=== PATIENT | male | born 1995 | race Caucasian/White ===

== ENCOUNTER 2017-07-12 07:11 | Emergency (ER) | payer OTHER ==
[~2017-07-12] VITALS: Ht 180.3 cm; Wt 100.7 kg
[2017-07-12 07:15] VITALS: Ht 180.3 cm; Wt 100.7 kg
--- NOTE | 2017-07-12 07:36 | EMERGENCY ROOM VISIT NOTE ---
History Report prepared by Kevin: Vianney Michel Under the Supervision of: Dr. Rodrigo Kamara M.D. First contact with patient: 07:21 Chief Complaint: NOSE BLEED (MINOR) Stated Complaint: NUMEROUS NOSE BLEEDS History of Present Illness The patient is a 21 year old male who presents to the Emergency Room with complaints of intermittent epistaxis that began yesterday. The patient states that over the past eight hours he has had four different epistaxis. He states that he would put a tissue up his nose, but notes that it kept coming back. The patient states that he woke this morning at 0600 to his nose gushing blood. He states that he could get it to stop in one nostril, but notes that the blood would start coming out the other nostril. The patient denies any active medical problems. He denies any history of nosebleeds. The patient states that prior to the bleeding beginning he had a sneezing fit. He denies any personal or family history of clotting disorders. The patient states that he has not used alcohol since Monday. He states that on Monday evening he used cocaine. The patient denies being on any daily medications. He states that he took two Advil Cold and Sinus last evening, noting that he thought he was developing a cold. Source of History: patient Onset: yesterday Position: nose Quality: other (epistaxis) Timing: intermittent Review of Systems See HPI for pertinent positives and negatives. A total of ten systems were reviewed and were otherwise negative. Past Medical & Surgical Medical Problems: (1) No Known Active Medical Problems Family History No pertinent family history stated. Social History Smoking Status: Never Smoker Alcohol Use: occasionally Drug Use: cocaine Marital Status: single Occupation Status: [employer] student Current/Historical Medications Scheduled PRN Oxymetazoline Hcl (Nasal [place] Moisturizing), 2 SPRAYS MELECIO BID PRN for Bleeding Allergies Coded Allergies: No Known Allergies (Unverified , 07/12/17) Physical Exam Vital Signs Date Time Temp Pulse Resp B/P (MAP) Pulse Ox O2 Delivery O2 Flow Rate FiO2 07/12/17 08:53 70 20 136/77 97 07/12/17 08:52 70 20 136/77 97 Room Air 07/12/17 07:43 70 20 136/79 97 Room Air 07/12/17 07:15 76 20 132/82 97 Room Air Physical Exam GENERAL: Awake, alert, well-appearing, in no distress HENT: Normocephalic, atraumatic. Dry blood in bilateral naris with b/l anterior clots likely prior source, oropharynx is clear with no active bleeding. EYES: Normal conjunctiva. Sclera non-icteric. NECK: Supple. No nuchal rigidity. FROM. No JVD. RESPIRATORY: Clear to auscultation. CARDIAC: Regular rate, normal rhythm. Extremities warm and well perfused. Pulses equal. ABDOMEN: Soft, non-distended. No tenderness to palpation. No rebound or guarding. No masses. RECTAL: Deferred. MUSCULOSKELETAL: Chest examination reveals no tenderness. The back is symmetrical on inspection without obvious abnormality. There is no CVA tenderness to palpation. No joint edema. LOWER EXTREMITIES: Calves are equal size bilaterally and non-tender. No edema. No discoloration. NEURO: Normal sensorium. No sensory or motor deficits noted. SKIN: No rash or jaundice noted. Medical Decision & Procedures Medications Administered Medications (Trade) Dose Ordered Sig/Marie Route Start Time Stop Time Status Last Admin Dose Admin Sodium Chloride ([place] Nasal [place]) 2 sprays NOW ONCE NA 07/12/17 08:45 07/12/17 08:46 DC 07/12/17 08:49 2 SPRAYS ED Course 0726: The patient was evaluated in room A2. A complete history and physical exam was performed. 0835: I reevaluated the patient and he is doing well. I discussed the exam findings with him and I discussed the treatment plan. He verbalized complete understanding and agreement. He is ready to go home. Medical Decision I reviewed the patient's past medical history, medications, and the nursing notes as described above. The patient's presentation and history were concerning for Epistaxis, upper respiratory infection, caustic exposure. Patient is a 21-year-old gentleman presents to emergency department with recurrent epistaxis for the past 8 hours in the setting of using cocaine this weekend and having subsequent nasal congestion per history of present illness. On arrival of the patient arrives with bilateral snares packed with tissues with hemostasis on removal, with clamp placed by nursing. He is afebrile with stable vital signs. No active bleeding in the posterior oropharynx. Given the patient is relatively well-appearing otherwise no indication for labs at this time. Patient was observed and additional hour and showed no return of bleeding. The patient's use of cocaine and subsequent nasal congestion, likely explanation for the patient's epistaxis. Findings and plan for follow-up reviewed with patient. Patient agreeable and d/c'd per discharge instructions. Medication Reconcilliation Current Medication List: was personally reviewed by me Impression Primary Impression: Epistaxis Scribe Attestation The scribe's documentation has been prepared under my direction and personally reviewed by me in its entirety. I confirm that the note above accurately reflects all work, treatment, procedures, and medical decision making performed by me. Departure Information Dispostion Home / Self-Care Prescriptions Oxymetazoline Hcl (NASAL SPRAY MOISTURIZING) 0.05 % Spr 2 SPRAYS MELECIO BID Y for Bleeding for 3 Days, #1 BTL Prov: Rodrigo Kamara M.D. 07/12/17 Referrals [facility] Forms HOME CARE DOCUMENTATION FORM, IMPORTANT VISIT INFORMATION, WORK / SCHOOL INSTRUCTIONS Patient Instructions ED Epistaxis Ch, My [facility] Additional Instructions Please follow up with the student health clinic in the next 1-3 days for re- evaluation. Otherwise, your exam did not show signs of an emergent condition at this time. If your nosebleed recurs you should packed with gauze and apply pressure for no less than 60 minutes and then subsequently apply oxymetazoline was on as directed. Saline nasal spray as needed to loosen nasal congestion. Moisten nares with vasoline or antibiotic ointment. Oxymetazoline as directed for less than 3 days. Avoid use of any irritants to the nares. Return to the emergency department for worsening symptoms as described in the accompanying instructions.
[2017-07-12] MEDS ORDERED: [UNRECOGNIZED DRUG - CODE] NAE (08:22)
[2017-07-12] MEDS ORDERED: SODIUM CHLORIDE 0.65% NA SOLN 45 ML (OCEAN) ONE (08:45)
[2017-07-12 08:53] VITALS: BP 136/77; PULSE 70; O2SAT 97
== END 2017-07-12 08:55 | disposition home or self-care (01) ==
LOC: C.EDB 07:13 → CANBEDREQ 08:25 → C.EDA 08:55
DX: R04.0 Epistaxis (principal); F14.90 Cocaine use, unspecified, uncomplicated

== ENCOUNTER 2017-12-10 12:17 | Emergency (ER) | payer OTHER ==
[~2017-12-10] VITALS: Ht 180.3 cm; Wt 96.7 kg
[~2017-12-10 12:17] MED LIST: [UNRECOGNIZED DRUG - CODE] NAE
[2017-12-10 12:21] VITALS: BP 139/85; TEMP 36.5; Ht 180.3 cm; Wt 96.7 kg
[2017-12-10] MEDS ORDERED: CEPH-571 PO (12:47)
[2017-12-10 12:52] VITALS: PULSE 76; O2SAT 96
--- NOTE | 2017-12-10 15:27 | EMERGENCY ROOM VISIT NOTE ---
ED Visit Note First contact with patient: 12:26 Chief complaint: Right eyelid laceration HPI: This 22-year-old white male presents for evaluation of a laceration on his right upper eyelid. The patient was jumping off an elevated surface on Monday night and accidentally was struck in the right eye by a friend's elbow. Bleeding was controlled with pressure. He states it was not malicious. He did not seek any treatment yesterday. He denies any nausea, vomiting, loss of consciousness, neck pain, or change in vision. The upper eyelid remains swollen. He is concerned about the surrounding redness. He states he did notify his parents this morning. No other complaints. Tetanus is believed to be up-to-date. Pain is 2/10. It is now around 38 hours post injury. Supplemental sheet was reviewed. Previous surgeries: None Medical history: Benign Current Medications: None Allergies: NKDA Tetanus: Within 10 Family History: Noncontributory Social History: [employer] student. Single. Positive EtOH use. REVIEW OF SYSTEM: HEENT: No dizziness, visual problems, hearing loss, or tinnitus. There is no difficulty swallowing and no oral lesions are present. LYMPH: No adenopathy. PULMONARY: No cough, shortness of breath, sputum production or hemoptysis. CARDIOVASCULAR: No chest pain, palpitations, shortness of breath or peripheral edema. GASTROINTESTINAL: No diarrhea, constipation, nausea, vomiting, or abdominal pain. GENITOURINARY: No dysuria, frequency, urgency or nocturia. NEUROLOGIC: No weakness, muscle tenderness, epilepsy or history of neurological problems. MUSCULOSKELETAL: No history of joint tenderness/swelling. No history of arthritis or arthralgias. SKIN: No rashes or lesions. PSYCHIATRIC: No history of depression or mental illness. ENDOCRINE: No history of diabetes, thyroid disorders, or abnormal hair growth. Physical Exam: Vitals: Afebrile. Reviewed and filed in patient's chart General: Well-developed, well-nourished, young white male, in no acute distress. No obvious discomfort. He is sitting on the bed. Alert and oriented. Skin: Warm and dry with good turgor. No rashes. Mild ecchymosis and erythema on his right upper eyelid. Also mild ecchymosis present around the lower eyelid. He has a well scabbed 1.5 cm laceration present on the upper eyelid. There is a significant crust. No active bleeding. The patient is not diaphoretic. Minor abrasions present over the right upper cheek. Musculoskeletal: Full range of motion of the neck without discomfort HEENT: Normocephalic. Eyes PERRLA, EOMI. No conjunctiva or scleral injection. No hyphema. Edema in the upper and lower right eyelids. He has no pain with palpation over the nasal bridge, inferior orbit, or lateral orbit. Minor discomfort with palpation over his eyebrow. No pain with palpation over the forehead. No palpable step-off. Nares patent bilaterally without turbinate enlargement. No significant drainage. No epistaxis. Neurologic: Gross sensation is intact across the face by soft touch. Impression: Right upper eyelid 1.5 cm laceration Plan: Patient was educated regarding today's findings. Conservative care measures were discussed. It has already been a significant amount of time since laceration occurred. I would not suture it at this point. It will heal by secondary intention. Cleanse the wound daily with soap and water and reapply a small amount of bacitracin. Ice and elevate intermittently as needed for discomfort. Tylenol and ibuprofen every 6 hours as needed for pain. Potential for cellulitis around the wound edge was discussed. I am not sure if it is inflammatory or cellulitic at this point. We will err on the side of caution and treat him with Keflex 500 mg 3 times a day 7 days. Prescription was provided. Wound care handout was provided. He may shower. Return to the ER for any acute changes or signs of infection. He may also follow-up with [facility]. He was reassured that I do not suspect periorbital fracture, orbital cellulitis, or globe injury. Current/Historical Medications Scheduled Cephalexin (Keflex), 1 CAP PO TID Allergies Coded Allergies: No Known Allergies (Unverified , 07/12/17) Vital Signs Date Time Temp Pulse Resp B/P (MAP) Pulse Ox O2 Delivery O2 Flow Rate FiO2 12/10/17 12:52 76 96 12/10/17 12:21 36.5 81 18 139/85 96 Room Air Departure Information Dispostion Home / Self-Care Condition GOOD Prescriptions Cephalexin (KEFLEX) 500 Mg Cap 1 CAP PO TID for 7 Days, #21 CAP Prov: Williams Harris,P.A. 12/10/17 Forms HOME CARE DOCUMENTATION FORM, MOTRIN USE, TYLENOL USE, IMPORTANT VISIT INFORMATION Patient Instructions My [employer] Additional Instructions Cool compresses to the eye several times per day to improve swelling Keflex 1 pill 3 times a day 7 days Apply triple antibiotic ointment to the wound at least twice per day Cleanse daily with soap and water Tylenol and Motrin every 6 hours as needed for mild discomfort Return to the ED or follow-up with [facility] for any persisting discomfort or change in symptoms
== END 2017-12-10 12:50 | disposition home or self-care (01) ==
LOC: C.EDB 12:18 → C.EDD 12:50
DX: S01.111A Laceration without foreign body of right eyelid and periocular area, initial encounter (principal); W51.XXXA Accidental striking against or bumped into by another person, initial encounter